=== PATIENT | male | born 1985 | race Caucasian/White ===

== ENCOUNTER 2022-10-27 19:48 | Emergency (ER) | payer MEDICAID, OTHER, SELFPAY ==
[~2022-10-27] VITALS: Ht 170.2 cm; Wt 97.2 kg
[2022-10-27] MEDS ORDERED: ACETAMINOPHEN TAB 650MG DOSE (2X325MG) PO ONE (20:50)
[2022-10-27] MEDS ORDERED: AMOXICILLIN 500 MG CAP PO ONE (20:50)
[2022-10-27 21:18] LABS: BASO # 0.1 10^3/uL (0.0-0.2); BASO % 0.5 % (0.0-1.0); EOS # 0.1 10^3/uL (0.0-0.5); EOS % 0.6 % (0.0-3.0); HEMATOCRIT 42.2 % (42.0-52.0); LYMPH # 2.5 10^3/uL (1.5-5.0); LYMPH % 18.6 % (24.0-44.0); MEAN CORPUSCULAR HEMOGLOBIN 30.9 pg (27.0-33.0); MEAN CORPUSCULAR HGB CONC 35.5 g/dl (32.0-36.5); MEAN CORPUSCULAR VOLUME 86.8 fl (80.0-96.0); MONO % 7.3 % (2.0-8.0); NEUTROPHILS # 9.7 10^3/uL (1.5-8.5); NEUTROPHILS % 72.8 % (36.0-66.0); PLATELET COUNT, AUTOMATED 298 10^3/uL (150-450); RED BLOOD COUNT 4.86 10^6/uL (4.30-6.10); WHITE BLOOD COUNT 13.3 10^3/uL (4.0-10.0)
[2022-10-27 21:47] LABS: BLOOD UREA NITROGEN 8 MG/DL (9-23); CALCIUM LEVEL 8.9 MG/DL (8.5-10.1); CARBON DIOXIDE LEVEL 28 MMOL/L (20-31); CHLORIDE LEVEL 109 MMOL/L (98-107); CREATININE FOR GFR 0.92 MG/DL (0.70-1.30); GLOMERULAR FILTRATION RATE > 60.0 (>60); GLUCOSE, FASTING 85 MG/DL (60-100); SODIUM LEVEL 140 MMOL/L (136-145)
[2022-10-27] MEDS ORDERED: AMOX500C PO (22:46)
[2022-10-27 22:56] VITALS: BP 135/84
== END 2022-10-27 22:57 | disposition home or self-care (01) ==
LOC: M ED 19:48
DX: J02.0 Streptococcal pharyngitis (principal); Z79.2 Long term (current) use of antibiotics

== ENCOUNTER 2022-12-05 18:18 | Inpatient (IN) | payer MEDICAID, OTHER ==
[~2022-12-05 18:18] MED LIST: AMOX500C PO
[2022-12-05 20:31] LABS: BARBITURATES URINE NEGATIVE (NEGATIVE); BENZODIAZEPINES URINE NEGATIVE (NEGATIVE); METHADONE URINE NEGATIVE (NEGATIVE); OPIATES URINE NEGATIVE (NEGATIVE); PHENCYCLIDINE URINE NEGATIVE (NEGATIVE)
[2022-12-05 20:34] LABS: AMPHETAMINES LEVEL URINE POSITIVE (NEGATIVE); CANNABINOIDS URINE POSITIVE (NEGATIVE); COCAINE METABOLITE URINE POSITIVE (NEGATIVE)
[2022-12-05 20:35] LABS: ETHYL ALCOHOL (ETHANOL) < 0.003 % (0.000-0.010); HEMATOCRIT 44.6 % (42.0-52.0); HEMOGLOBIN 15.9 g/dl (13.5-17.5); MEAN CORPUSCULAR HEMOGLOBIN 30.9 pg (27.0-33.0); MEAN CORPUSCULAR HGB CONC 35.7 g/dl (32.0-36.5); MEAN CORPUSCULAR VOLUME 86.8 fl (80.0-96.0); PLATELET COUNT, AUTOMATED 342 10^3/uL (150-450); RED BLOOD COUNT 5.14 10^6/uL (4.30-6.10)
[2022-12-05 20:36] LABS: ACETAMINOPHEN LEVEL < 2.0 UG/ML (10.0-20.0)
[2022-12-05 20:37] LABS: ALBUMIN 4.7 G/DL (3.2-5.2); ALKALINE PHOSPHATASE 88 U/L (46-116); ALT/SGPT 112 U/L (7.0-40); AST/SGOT 246 U/L (<34); BILIRUBIN,DIRECT 0.6 MG/DL (<0.4); BILIRUBIN,TOTAL 1.5 MG/DL (0.3-1.2); BLOOD UREA NITROGEN 23 MG/DL (9-23); CALCIUM LEVEL 9.2 MG/DL (8.5-10.1); CARBON DIOXIDE LEVEL 26 MMOL/L (20-31); CHLORIDE LEVEL 101 MMOL/L (98-107); CREATININE FOR GFR 0.91 MG/DL (0.70-1.30); GLOMERULAR FILTRATION RATE > 60.0 (>60); GLUCOSE, FASTING 107 MG/DL (60-100); POTASSIUM SERUM 3.9 MMOL/L (3.5-5.1); SALICYLATE LEVEL < 3.0 MG/DL (<30); SODIUM LEVEL 137 MMOL/L (136-145); TOTAL PROTEIN 7.5 G/DL (5.7-8.2)
[2022-12-05 20:39] LABS: THYROID STIMULATING HORMONE 1.642 uIU/ML (0.55-4.78)
[2022-12-05 21:43] LABS: HEPATITIS B SURFACE ANTIGEN NEGATIVE (NEGATIVE)
[2022-12-05] MEDS ORDERED: IBUPROFEN 400MG TAB PO PRN (22:25)
[2022-12-05] MEDS ORDERED: diphenhydrAMINE 25MG CAP PO PRN (22:25)
[2022-12-05] MEDS ORDERED: LORazepam 1 MG TAB PO PRN (22:25)
[2022-12-05] MEDS ORDERED: ACETAMINOPHEN TAB 650MG DOSE (2X325MG) PO PRN (22:25)
[2022-12-05] MEDS ORDERED: OLANZapine ORAL DISINTEGRATING TAB 5MG PO PRN (22:25)
[2022-12-05] MEDS ORDERED: traZODone 50 MG TAB PO PRN (22:25)
[2022-12-05] MEDS ORDERED: MAALOX 30 ML SUSP *UDC PO PRN (22:25)
[2022-12-05] MEDS ORDERED: MOM 30ML SUSPENSION UDC PO PRN (22:25)
[2022-12-05 22:55] LABS: HEPATITIS B CORE ANTIBODY IGM NEGATIVE (NEGATIVE)
[2022-12-05] MEDS ORDERED: LORazepam 2 MG/ML 1ML VIAL IM STA (23:16)
[2022-12-05] MEDS ORDERED: HALOPERIDOL 5MG/ML 1ML VIAL IM STA (23:16)
[2022-12-05] MEDS ORDERED: diphenhydrAMINE 50MG/ML VIAL IM STA (23:16)
[2022-12-05] MEDS ORDERED: LORazepam 2 MG TAB PO PRN (23:35)
[2022-12-05] MEDS ORDERED: HOME MED LIST COMPLETE! XX SCH (23:50)
[2022-12-05 23:52] VITALS: BP 129/78
[2022-12-06] MEDS: risperiDONE 1 MG TAB PO SCH ×2 (10:41→21:23)
[2022-12-06 16:03] VITALS: BP 113/71
[2022-12-07 06:05] VITALS: BP 121/71
[2022-12-07] MEDS: risperiDONE 1 MG TAB PO SCH ×2 (09:23→20:37)
[2022-12-07 16:41] VITALS: BP 123/98
[2022-12-08 06:28] VITALS: BP 119/75
[2022-12-08] MEDS: risperiDONE 1 MG TAB PO SCH ×2 (09:15→19:56)
[2022-12-08 17:47] VITALS: BP 114/69
[2022-12-09 06:42] VITALS: BP 113/68
[2022-12-09] MEDS: risperiDONE 1 MG TAB PO SCH ×2 (09:21→20:29)
[2022-12-09 18:00] VITALS: BP 138/85
[2022-12-10 06:37] VITALS: BP 125/64
[2022-12-10] MEDS: risperiDONE 1 MG TAB PO SCH (08:34)
[2022-12-10] MEDS ORDERED: RISP-8 PO (10:21)
== END 2022-12-10 11:33 | disposition home or self-care (01) | DRG 751 ==
LOC: M ED 18:18 → M ED INP 22:23 → M PSY 23:28
PROVIDERS: ADMIT Psychiatry & Neurology Child & Adolescent Psychiatry; ATTEND Student in an Organized Health Care Education/Training Program
DX: F29 Unspecified psychosis not due to a substance or known physiological condition (principal); F17.200 Nicotine dependence, unspecified, uncomplicated; F12.90 Cannabis use, unspecified, uncomplicated; F14.90 Cocaine use, unspecified, uncomplicated; F15.90 Other stimulant use, unspecified, uncomplicated

== ENCOUNTER 2023-05-09 18:03 | Inpatient (IN) | payer MEDICAID, OTHER ==
[~2023-05-09] VITALS: Ht 170.2 cm; Wt 96.0 kg
[~2023-05-09 18:03] MED LIST changes: +RISP-8 PO
[2023-05-09 19:14] LABS: HEMATOCRIT 47.5 % (42.0-52.0); HEMOGLOBIN 16.9 g/dl (13.5-17.5); MEAN CORPUSCULAR HEMOGLOBIN 31.5 pg (27.0-33.0); MEAN CORPUSCULAR HGB CONC 35.6 g/dl (32.0-36.5); MEAN CORPUSCULAR VOLUME 88.6 fl (80.0-96.0); PLATELET COUNT, AUTOMATED 346 10^3/uL (150-450); RED BLOOD COUNT 5.36 10^6/uL (4.30-6.10); WHITE BLOOD COUNT 15.1 10^3/uL (4.0-10.0)
[2023-05-09 19:38] LABS: ETHYL ALCOHOL (ETHANOL) 0.004 % (0.000-0.010); SALICYLATE LEVEL < 3.0 MG/DL (<30)
[2023-05-09 19:39] LABS: ALBUMIN 4.8 G/DL (3.2-5.2); ALKALINE PHOSPHATASE 90 U/L (46-116); ALT/SGPT 90 U/L (7.0-40); AST/SGOT 146 U/L (<34); BILIRUBIN,DIRECT 0.5 MG/DL (<0.4); BILIRUBIN,TOTAL 1.3 MG/DL (0.3-1.2); BLOOD UREA NITROGEN 23 MG/DL (9-23); CARBON DIOXIDE LEVEL 22 MMOL/L (20-31); CHLORIDE LEVEL 101 MMOL/L (98-107); CREATININE FOR GFR 0.95 MG/DL (0.70-1.30); GLOMERULAR FILTRATION RATE > 60.0 (>60); GLUCOSE, FASTING 88 MG/DL (60-100); POTASSIUM SERUM 3.7 MMOL/L (3.5-5.1); SODIUM LEVEL 138 MMOL/L (136-145); TOTAL PROTEIN 8.2 G/DL (5.7-8.2)
[2023-05-09] MEDS ORDERED: RISP-8 PO (20:05)
[2023-05-09] MEDS ORDERED: IBUP-1764 PO (20:07)
[2023-05-09] MEDS ORDERED: HOME MED LIST COMPLETE! XX SCH (20:10)
[2023-05-09 20:34] LABS: BARBITURATES URINE NEGATIVE (NEGATIVE); BENZODIAZEPINES URINE NEGATIVE (NEGATIVE); COCAINE METABOLITE URINE NEGATIVE (NEGATIVE); METHADONE URINE NEGATIVE (NEGATIVE); OPIATES URINE NEGATIVE (NEGATIVE); PHENCYCLIDINE URINE NEGATIVE (NEGATIVE)
[2023-05-09 20:36] LABS: AMPHETAMINES LEVEL URINE POSITIVE (NEGATIVE); CANNABINOIDS URINE POSITIVE (NEGATIVE)
[2023-05-09] MEDS ORDERED: diphenhydrAMINE 25MG CAP PO PRN (22:35)
[2023-05-09] MEDS ORDERED: traZODone 50 MG TAB PO PRN (22:35)
[2023-05-09] MEDS ORDERED: IBUPROFEN 400MG TAB PO PRN (22:35)
[2023-05-09] MEDS ORDERED: MAALOX 30 ML SUSP *UDC PO PRN (22:35)
[2023-05-09] MEDS ORDERED: OLANZapine ORAL DISINTEGRATING TAB 5MG PO PRN (22:35)
[2023-05-09] MEDS ORDERED: MOM 30ML SUSPENSION UDC PO PRN (22:35)
[2023-05-09 23:29] VITALS: BP 134/96; TEMP 97.9; O2SAT 98
[2023-05-10 06:58] VITALS: BP 117/67; TEMP 98; O2SAT 94
[2023-05-10] MEDS: NICOTINE 21MG/24HR 1 EA TRANSDERMAL TD SCH (10:11)
[2023-05-10] MEDS: NEOSPORIN TOP OINT 15GM TOP SCH (10:25)
[2023-05-10 16:21] VITALS: BP 137/60; TEMP 98.4; O2SAT 100
[2023-05-11 07:12] VITALS: BP 146/75; TEMP 97.4; O2SAT 100
[2023-05-11 08:20] VITALS: BP 146/75; TEMP 97.4; O2SAT 100
[2023-05-11] MEDS: NEOSPORIN TOP OINT 15GM TOP SCH (08:27)
[2023-05-11] MEDS: ACETAMINOPHEN TAB 650MG DOSE (2X325MG) PO PRN ×2 (08:28→20:11)
[2023-05-11] MEDS: NICOTINE 21MG/24HR 1 EA TRANSDERMAL TD SCH (08:29)
[2023-05-11 16:10] VITALS: BP 118/64; TEMP 97.8; O2SAT 95
[2023-05-12 06:57] VITALS: BP 114/60; TEMP 97.8; O2SAT 94
[2023-05-12] MEDS: NICOTINE 21MG/24HR 1 EA TRANSDERMAL TD SCH (08:00)
[2023-05-12] MEDS: NEOSPORIN TOP OINT 15GM TOP SCH (08:01)
[2023-05-12 08:49] LABS: CHOLESTEROL RISK RATIO 4.05 (<5); HDL CHOLESTEROL 34.5 MG/DL (>40); LDL CHOLESTEROL 86.7 MG/DL (<100); NON-HDL-C 105.5 MG/DL
[2023-05-12] MEDS: ACETAMINOPHEN TAB 650MG DOSE (2X325MG) PO PRN (09:11)
[2023-05-12 16:27] VITALS: BP 119/73; TEMP 98.4; O2SAT 95
[2023-05-13 06:31] VITALS: BP 119/72; TEMP 98.9; O2SAT 96
[2023-05-13] MEDS: NICOTINE 21MG/24HR 1 EA TRANSDERMAL TD SCH (08:07)
[2023-05-13] MEDS: ACETAMINOPHEN TAB 650MG DOSE (2X325MG) PO PRN (08:07)
[2023-05-13] MEDS: NEOSPORIN TOP OINT 15GM TOP SCH (08:08)
[2023-05-13] MEDS ORDERED: NEOM28OI TOP (09:20)
[2023-05-13] MEDS ORDERED: NICO21PAT TD (09:20)
== END 2023-05-13 10:32 | disposition home or self-care (01) | DRG 753 ==
LOC: M ED 18:03 → M ED INP 22:32 → M PSY 23:13
PROVIDERS: ADMIT Student in an Organized Health Care Education/Training Program; ATTEND Student in an Organized Health Care Education/Training Program
DX: F39 Unspecified mood [affective] disorder (principal); F12.90 Cannabis use, unspecified, uncomplicated; F15.90 Other stimulant use, unspecified, uncomplicated; F10.10 Alcohol abuse, uncomplicated; F14.90 Cocaine use, unspecified, uncomplicated; F43.10 Post-traumatic stress disorder, unspecified; F17.200 Nicotine dependence, unspecified, uncomplicated; Z79.899 Other long term (current) drug therapy